=== PATIENT | female | born 1995 | race Caucasian/White ===

== ENCOUNTER 2020-02-29 11:44 | Outpatient (CLI) | payer OTHER, SELFPAY ==
[2020-02-29 12:40] VITALS: BP 135/86; PULSE 68
== END 2020-02-29 12:40 | disposition home or self-care (01) ==
LOC: ANHOBOP 12:24
PROVIDERS: Family Provider Obstetrics & Gynecology; Visit Provider Obstetrics & Gynecology
DX: O41.8X90 Other specified disorders of amniotic fluid and membranes, unspecified trimester, not applicable or unspecified (principal)
CPT/HCPCS: 59025

== ENCOUNTER 2020-03-05 18:50 | Observation (INO) | payer OTHER, SELFPAY ==
--- NOTE | 2020-03-05 18:50 | OBADM ---
This patient, Beulah Mcclain, admitted to the OB room Labor/Delivery/Recovery 103 for observation. Patient/family oriented to hospital policies and general routines including ID bracelet, bed and alarms, visiting hours, pain management, procedures, bathroom and other care routines, personal items, smoking policy, room service/diet, and visiting hours. Patient/Family are encouraged to report perceived risks to care and to ask questions if they do not understand what they are told or what they should do.
[2020-03-05 18:58] VITALS: TEMP 36.4
[2020-03-05 18:59] VITALS: BP 129/88; PULSE 65
[2020-03-05 19:05] VITALS: BMI 22.3
--- NOTE | 2020-03-05 20:06 | PC.NURSE ---
Dr. Luna returned page. Dr. Luna updated on unchanged SVE after 1 hour of monitoring. Contractions occasional and mild. Abdomen soft between. FHT reactive category 1. VSS. Discharge orders received.
[2020-03-05 20:08] VITALS: BP 129/88; PULSE 65
--- NOTE | 2020-03-07 17:09 | PM.OBTRLD ---
OB - Triage/Final Diagnosis Visit Information Reason for evaluation: threatened labor
== END 2020-03-05 20:30 | disposition home or self-care (01) ==
PROVIDERS: Admitting Provider Obstetrics & Gynecology; Visit Provider Obstetrics & Gynecology
DX: O47.1 False labor at or after 37 completed weeks of gestation (principal); Z3A.39 39 weeks gestation of pregnancy
CPT/HCPCS: 59025; G0378; G0379

== ENCOUNTER 2020-03-08 04:57 | Inpatient (IN) | payer OTHER, SELFPAY ==
--- NOTE | 2020-03-06 06:38 | PM.OBTRLD ---
OB - Triage/Final Diagnosis Visit Information Date of evaluation: 03/05/20 Reason for evaluation: threatened labor
[2020-03-08] VITALS (112 sets, daily range): BP systolic 110–171; BP diastolic 38–114; PULSE 29–119; RESP 16–18; TEMP 36.6–37.5; O2SAT 98–100; BMI 21.9
--- NOTE | 2020-03-08 05:37 | LDADM ---
This patient, Beulah Mcclain, was admitted to Labor/Delivery/Recovery 104 on 03/08/20 at 04:57. Plans for labor, pain management and were discussed with patient. Patient/family oriented to hospital policies and general routines including ID bracelet, bed and alarms, visiting hours, pain management, procedures, bathroom and other care routines, personal items, smoking policy, room service/diet and guest tray routines, security routines, and visiting hours. Patient/Family are encouraged to report perceived risks to care and to ask questions if they do not understand what they are told or what they should do. See OBIX for further documentation.
[2020-03-08] MEDS: OXYTOCIN 30 UNITS/NS 500 ML 30 UNITS/500 ML BAG IV CONT (05:50)
[2020-03-08] MEDS: LACTATED RINGERS 1,000 ML 125 ML IV CONT ×3 (05:52→11:42)
[2020-03-08 05:55] LABS: Basophils Percent Auto 0.4 % (0.2-1.2); Eosinophils Absolute Auto 0.1 K/mm3 (0-0.3); Eosinophils Percent Auto 0.8 % (0-4.4); Hemoglobin 11.3 g/dL (12.0-15.0); Immature Granulocyte Absolute 0.04 K/mm3 (0.00-0.031); Immature Granulocyte Percent A 0.5 % (0-0.5); Lymphocytes Absolute Auto 3.14 K/mm3 (0.9-3.2); Lymphocytes Percent Auto 41.9 % (18.3-44.2); Mean Corpuscular HGB Conc 34.2 g/dl (32-36); Mean Corpuscular Hemoglobin 28.7 pg (26-34); Mean Corpuscular Volume 83.8 fl (80-100); Mean Platelet Volume 10.7 fl (7.4-10.4); Monocytes Absolute Auto 0.8 K/mm3 (0.1-0.6); Monocytes Percent Auto 10.5 % (2.6-8.5); Neutrophils Absolute Auto 3.4 K/mm3 (1.3-6.7); Neutrophils Percent Auto 45.9 % (45.5-73.1); Platelet Count Result 196 k/mm3 (150-375); Red Blood Count 3.94 M/mm3 (4.2-5.4); Red Cell Distribution Width 14.1 % (11.5-14.5); White Blood Count 7.5 K/mm3 (4.5-10.0)
--- NOTE | 2020-03-08 06:31 | PM.IMHP ---
H&P: HPI History of Present Illness Chief complaint: Induction Narrative: Beulah Mcclain is a 24 year old female whose last menstrual period was 05/31/2019, EDC is 03/06/2020, presents at 40 half weeks gestation for induction of labor. She is negative for group B strep. She has a favorable cervix. She has a an early ultrasound which confirms dates Review of Systems Review of Systems: All systems reviewed & are unremarkable except as noted in HPI and below PMFSH Family History Family History Father Hypertension Mother Hypertension Grandparent Carcinoma of colon Malignant neoplasm of prostate Social History Social History Smoking status: Never smoker Alcohol intake: never Substance use: never Spiritual care concerns: No Meds Home Medications and Allergies Home Medications Medication Instructions Recorded Confirmed Type PNV cmb#95-ferrous fumarate-FA 1 tablet PO DAILY 02/09/20 02/09/20 History [] Allergies Allergy/AdvReac Type Severity Reaction Status Date / Time doxycycline Allergy Severe Difficulty Verified 03/08/20 05:49 Breathing Vital Signs Vital Signs - 24 hr 03/08/20 05:00 03/08/20 05:52 03/08/20 05:56 Temperature 97.9 F Pulse Rate 64 65 Blood Pressure 139/94 H 137/92 H 03/08/20 06:01 03/08/20 06:16 03/08/20 06:31 Temperature Pulse Rate 76 66 61 Blood Pressure 128/86 139/88 142/92 H Exam Const: General: no acute distress Eyes: General: appearance normal, both eyes and all related structures Neck: Neck: supple and no JVD Thyroid: thyroid normal Resp: Effort & Inspection: normal respiratory effort Auscultation: clear to auscultation bilaterally Cardio: Rate: regular rate Rhythm: regular rhythm GI: Inspection: normal to inspection ( fundus soft consistent with dates) : General: Yes other ( cervix 3/60/2. AROM clear. FHTs reassuring) Skin: General skin exam: no rashes or lesions noted Extrem: General: normal to inspection and no edema Psych: Mental Status: mental status grossly normal Affect: normal affect H&P: Results Labs Labs: Short CBC 03/08/20 Range/Units 05:39 WBC 7.5 (4.5-10.0) K/mm3 Hgb 11.3 L (12.0-15.0) g/dL Hct 33.0 L (37.0-47.0) % Plt Count 196 (150-375) k/mm3 Assessment and Plan Additional Plan impression: Term Plan: Medical induction of labor / she is an epidural candidate / spontaneous vaginal delivery is expected
[2020-03-08 07:00] LABS: Rapid Plasma Reagin Non-Reactive (NonReactive)
--- NOTE | 2020-03-08 07:41 | P.PNAN_ITS ---
Anes - Eval Pre Procedure Procedure: Labor Epidural Date/Time: 03/08/20 07:41 Surgeon: Cheryl Preop Diagnosis: Labor Pain Pre Op Diagnosis: Induction Patient Data Age: 24 Gender: F Height: 5 ft 4 in Weight: 58 kg Last Vital Signs Temp 36.6 C 03/08/20 05:00 Pulse 73 03/08/20 07:39 BP 131/96 H 03/08/20 07:39 Pulse Ox 100 03/08/20 07:39 Allergies Allergy/AdvReac Type Severity Reaction Status Date / Time doxycycline Allergy Severe Difficulty Verified 03/08/20 05:49 Breathing Home Medications Medication Instructions Recorded Confirmed Type PNV cmb#95-ferrous fumarate-FA 1 tablet PO DAILY 02/09/20 02/09/20 History [] Laboratory Tests 03/08/20 03/08/20 03/08/20 05:39 05:39 05:39 WBC 7.5 K/mm3 K/mm3 (4.5-10.0) RBC 3.94 M/mm3 L M/mm3 (4.2-5.4) Hgb 11.3 g/dL L g/dL (12.0-15.0) Hct 33.0 % L % (37.0-47.0) MCV 83.8 fl fl (80-100) MCH 28.7 pg pg (26-34) MCHC 34.2 g/dl g/dl (32-36) RDW 14.1 % % (11.5-14.5) Plt Count 196 k/mm3 k/mm3 (150-375) MPV 10.7 fl H fl (7.4-10.4) Immature Gran % (Auto) 0.5 % % (0-0.5) Neut % (Auto) 45.9 % % (45.5-73.1) Lymph % (Auto) 41.9 % % (18.3-44.2) [place] % (Auto) 10.5 % H % (2.6-8.5) Eos % (Auto) 0.8 % % (0-4.4) Baso % (Auto) 0.4 % % (0.2-1.2) Lymph # (Auto) 3.14 K/mm3 K/mm3 (0.9-3.2) [place] # (Auto) 0.8 K/mm3 H K/mm3 (0.1-0.6) Eos # (Auto) 0.1 K/mm3 K/mm3 (0-0.3) Baso # (Auto) 0.0 K/mm3 K/mm3 (0.0-0.1) Abs Immat Gran (auto) 0.04 K/mm3 H K/mm3 (0.00-0.031) Absolute Neuts (auto) 3.4 K/mm3 K/mm3 (1.3-6.7) Absolute Nucleated RBC 0.0 K/mm3 K/mm3 (0.0-0.012) Nucleated RBC % 0.0 % % (0.0-0.2) RPR Non-reactive (NonReactive) Blood Type O Positive Antibody Screen Negative : gestational age (RICH 03/06/20) Patient hx anesthesia problems: none Family hx anesthesia problems: none [facility] Family History Family History Father Hypertension Mother Hypertension Grandparent Carcinoma of colon Malignant neoplasm of prostate Social History Social History Smoking status: Never smoker Alcohol intake: never Substance use: never Spiritual care concerns: No Exam Day of Procedure 03/08/20 07:41 Patient weight: normal Heart: regular rate and rhythm Lungs: normal air movement Airway: Mallampati scale class II Neurological: alert and oriented
[2020-03-08] MEDS: ONDANSETRON INJ 4 MG/2 ML VIAL IV PUSH (08:09)
--- NOTE | 2020-03-08 11:21 | PM.OBPNVD ---
OB - PN: Subj Subjective Date/time seen: 03/08/20 11:21 Interval history: Cervix is 5.5cm by RN exam. heart tones are reassuring with uterine contractions every 2 minutes Epidural is working and patient is comfortable OB - PN: Obj Data Labs CBC & Chem 7: 03/08/20 05:39 Labs: Laboratory Results - last 24 hr 03/08/20 03/08/20 03/08/20 05:39 05:39 05:39 WBC 7.5 RBC 3.94 L Hgb 11.3 L Hct 33.0 L MCV 83.8 MCH 28.7 MCHC 34.2 RDW 14.1 Plt Count 196 MPV 10.7 H Immature Gran % (Auto) 0.5 Neut % (Auto) 45.9 Lymph % (Auto) 41.9 [place] % (Auto) 10.5 H Eos % (Auto) 0.8 Baso % (Auto) 0.4 Lymph # (Auto) 3.14 [place] # (Auto) 0.8 H Eos # (Auto) 0.1 Baso # (Auto) 0.0 Abs Immat Gran (auto) 0.04 H Absolute Neuts (auto) 3.4 Absolute Nucleated RBC 0.0 Nucleated RBC % 0.0 RPR Non-reactive Blood Type O Positive Antibody Screen Negative OB - PN A/P Time Spent With Patient Time: Total time spent is greater than 50% in coordination of care (as documented) at patient's floor/unit and/or counseling patient:
--- NOTE | 2020-03-08 13:00 | P.PCNOB_ITS ---
OB - Delivery Note Procedure Delivery date: 03/08/20 Intrapartal events: None Induction method: AROM Delivery augmentation: pitocin Delivery monitor: external FHT Route of delivery: Episiotomy description: None Laceration description: None Specimen: No Estimated blood loss (mL): 157 Anesthesia type: Epidural Disposition: floor [place] Baby Date of : 03/08/20 Time of : 12:52 Weeks of gestation at delivery: 40 gender: Male presentation: vertex position: Right Occiput Anterior Placenta delivery description: Spontaneous cord vessel description: 3 Vessels and Nuchal Cord score one minute: 9 score five minutes: 9
[2020-03-08] MEDS: OXYTOCIN 30 UNITS/NS 500 ML 30 UNITS/500 ML BAG 125 UNITS IV CONT (13:26)
[2020-03-08] MEDS: METHYLERGONOVINE MALEATE 0.2 MG/ML VIAL IM (13:26)
--- NOTE | 2020-03-08 15:51 | PC.NURSE ---
PT arrived on unit via wheelchair accompanied by spouse and to room 281. PT oriented to room and surroundings. PT introductions made and plan of care discussed per post , pain management, breast feeding, daily care activities. PT verbalized understanding of such care.Welcome packet reviewed and discussed.
[2020-03-08] MEDS: WITCH HAZEL 40 PADS 1 PAD TOPICAL (16:16)
[2020-03-08] MEDS: DOCUSATE SODIUM 100 MG CAPSULE PO (16:16)
[2020-03-08] MEDS: BENZOCAINE 20% AER SPR (*SP) 56 GM CAN 1 SPRAY TOPICAL (16:16)
[2020-03-08] MEDS: IBUPROFEN 600 MG TABLET PO (16:17)
[2020-03-08] MEDS: ACETAMINOPHEN 325 MG TABLET 650 MG PO (16:17)
[2020-03-09] VITALS (16 sets, daily range): BP systolic 111–143; BP diastolic 68–105; PULSE 52–91; RESP 12–18; TEMP 36.3–37.2; O2SAT 94–100
[2020-03-09 05:34] LABS: Hematocrit 26.2 % (37.0-47.0); Hemoglobin 8.8 g/dL (12.0-15.0)
--- NOTE | 2020-03-09 06:19 | PM.OBPNVD ---
OB - PN: Subj Subjective Date/time seen: 03/09/20 06:19 Patient comments: no complaints and pain well controlled baby status: doing well OB - PN: Obj Data Labs CBC & Chem 7: 03/09/20 05:18 Labs: Laboratory Results - last 24 hr 03/08/20 03/08/20 03/09/20 05:39 05:39 05:18 Hgb 8.8 L Hct 26.2 L RPR Non-reactive Blood Type O Positive Antibody Screen Negative OB - PN A/P Plan day: 1 Plan: routine care Comments: desires ppbtl. permanence,risks/benefits and alternatives reviewed Time Spent With Patient Time: Total time spent is greater than 50% in coordination of care (as documented) at patient's floor/unit and/or counseling patient: Time with patient: less than 15 minutes Review of Systems Review of Systems: All systems reviewed & are unremarkable except as noted in HPI and below Exam Const: General: no acute distress Eyes: General: appearance normal, both eyes and all related structures Neck: Neck: supple and no JVD Thyroid: thyroid normal Resp: Effort & Inspection: normal respiratory effort Auscultation: clear to auscultation bilaterally Cardio: Rate: regular rate Rhythm: regular rhythm GI: Inspection: normal to inspection (fundus firm) : General: Yes bladder normal to palpation External Female Exam: normal external appearance Speculum Exam - Vagina: normal vaginal discharge and No vaginal bleeding Speculum Exam - Cervix: nontender Bimanual exam- vagina & uterus: bladder normal to palpation and No Cervical tenderness present OB/external & speculum: No vaginal bleeding Skin: General skin exam: no rashes or lesions noted Extrem: General: normal to inspection and no edema Psych: Mental Status: mental status grossly normal Affect: normal affect
--- NOTE | 2020-03-09 07:00 | PC.NURSE ---
PT introductions made and plan of care discussed per post , pain management, breast feeding, daily care activities, NPO and pending BTL. PT verbalized understanding of such care.
[2020-03-09] MEDS: LACTATED RINGERS 1,000 ML 125 ML IV CONT (09:09)
[2020-03-09] MEDS: DOCUSATE SODIUM 100 MG CAPSULE PO (09:10)
[2020-03-09] MEDS: ACETAMINOPHEN 325 MG TABLET 650 MG PO (09:10)
[2020-03-09] MEDS: MULTIVIT/MIN/PREN/FOL AC/IRON TABLET 1 TAB PO (09:11)
[2020-03-09] MEDS: IBUPROFEN 600 MG TABLET PO ×2 (09:11→16:24)
[2020-03-09] MEDS: POLYSACCHARIDE IRON COMPLEX 150 MG CAPSULE PO ×2 (09:11→16:26)
--- NOTE | 2020-03-09 10:04 | WPDANESEFPP ---
Anes - Eval Final PreProcedure Day of Procedure 03/09/20 10:04 Patient weight: normal Heart: regular rate and rhythm Lungs: clear to auscultation Airway: Mallampati scale class II Neurological: alert and oriented Last oral intake: >/= 8 hours ASA classification: II Emergent: no Anesthetic plan: proceed Anesthesia type and monitoring: regional epidural and standard monitoring Informed Consent: The patient's anesthetic plan and its attendant risks and benefits were discussed with the patient/family/POA. Questions were solicited and answers provided to the satisfaction of the patient/family/POA.
--- NOTE | 2020-03-09 11:18 | P.OP_ITS ---
Procedure Note - Detailed Date of procedure: 03/09/20 Pre-op diagnosis: Induction Surgeon: Corbin Umaña MD Postop diagnosis: Desires sterilization Procedure: bilateral tubal ligation via modified Trevin method Anesthesia: Epidural Blood loss,: 5cc Complications: None Findings: uterus/normal-appearing ovaries and tubes Description of procedure: The patient was prepped and draped in normal sterile fashion placed in the dorsal lithotomy position. Under excellent epidural anes thesia the abdomen was entered in an infraumbilical incision passed through the rent layers to the fascia fascia was incised upward outward fashion bilaterally underlying muscles sharply dissected parietal peritoneum entered by Brittani clamps and entered by sharp dissection 9 the left fallopian tube was grasped and traversed from its midportion to the fimbriated end reach 1st to the midportion a good knuckle of tube was free tied with 0 chromic perineum between pierced and the distal and proximal legs were free tied with 0 chromic the portion between cut passed off as portion of left fallopian tube hemostasis was assured the right fallopian tube was then grasped traversed to its fimbriated end to assure this was a 2 breech 1st to the midportion a good knuckle of tube formed with and free tied with 0 chromic peritoneum between was cut and the distal and proximal portions free tied with 0 chromic portion between cut passed off the table and marked as portion of right fallopian tube in a states was assured blood loss was estimated at5cc at that point and the tubes were returned to the abdomen. The fascia was closed with continuous running 0 Vicryl from lateral edge to lateral edge and the skin closed with 4 Monocryl glue blood loss was estimated at5cc all sponge, needle, instrument counts were correct. There were no immediate complications
--- NOTE | 2020-03-09 11:23 | PC.NURSE ---
PT to OR via bed accompanied by two nurses from preop. Iv running, pt alert and awake and states comfortable.
--- NOTE | 2020-03-09 12:35 | WPDANLDPN2 ---
Anes-Prog Note L&D Date/Time: 03/09/20 12:35 Comfortable throughout: labor and delivery Neuraxial method: epidural Epidural/Spinal procedure site: clean & non-tender Neuro status: Neuro function grossly intact. Cardiovascular status: normal Respiratory status: normal Airway patency: baseline Mental status: baseline Post-Op hydration status: normal Vital Signs: Last Vital Signs Temp 36.3 C L 03/09/20 11:16 Pulse 61 03/09/20 12:15 Resp 14 03/09/20 12:15 BP 143/99 H 03/09/20 12:15 Pulse Ox 96 03/09/20 12:15 I/O: Intake & Output 03/08/20 03/09/20 03/09/20 23:59 07:59 15:59 Intake Total 0 Balance 0 Post-procedural complaints: none Patient feedback: Patient satisfied with anesthetic care.
--- NOTE | 2020-03-09 12:49 | SUR.PHASEI ---
1248: Dr. Encinas notified about BP. He said continue to monitor.
--- NOTE | 2020-03-09 13:00 | PC.NURSE ---
PT arrived on unit via bed awake and alert and oriented to room and surroundings.
[2020-03-09] MEDS: SIMETHICONE 80 MG TAB.CHEW PO (16:24)
[2020-03-09] MEDS: DOCUSATE SODIUM 100 MG CAPSULE (16:25)
--- NOTE | 2020-03-09 16:30 | PC.NURSE ---
Mother is able to independently latch infant with appropriate positioning/alignment. She denies any nipple discomfort, is feeding as required and waking to feed if needed. has had at least 6 since , and is currently meeting outcomes for weight, output, jaundice and feeding frequencies. Mother states she feels confident to continue effective at home. Reviewed transition to breast milk, signs of adequate intake, and engorgement/relief. Instructed to call ICP if intake/output less than required. Reviewed regular medications mother is taking. Information provided per Alyssa. Reviewed community resources on the [facility] website and in the Mom/Baby guide. Information on outpatient services provided. Mother has no further questions at this time.
--- NOTE | 2020-03-09 18:30 | PC.NURSE ---
PT received discharge instructions per protocol and verbalized understanding of such care.
--- NOTE | 2020-03-09 18:50 | PC.NURSE ---
PT discharged to home ambulatory accompanied by fob and infant to waiting car. Follow up appts confirmed
--- NOTE | 2020-03-10 10:06 | PM.DS ---
DS: Diagnosis Admitting Diagnosis Admitting Diagnosis: term DS: Summary Time Spent with Patient Time attestation: Total time spent providing and/or coordinating discharge services: Exam Const: General: no acute distress Eyes: General: appearance normal, both eyes and all related structures Neck: Neck: supple and no JVD Thyroid: thyroid normal Resp: Effort & Inspection: normal respiratory effort Auscultation: clear to auscultation bilaterally Cardio: Rate: regular rate Rhythm: regular rhythm GI: Inspection: non-distended GI Palp: Yes Soft to palpation, No Tenderness to palpation present (GI) and No Guarding due to palpation present (GI) Auscultation: normal bowel sounds : General: Yes bladder normal to palpation External Female Exam: normal external appearance Speculum Exam - Vagina: normal vaginal discharge and No vaginal bleeding Speculum Exam - Cervix: nontender Bimanual exam- vagina & uterus: bladder normal to palpation and No Cervical tenderness present OB/external & speculum: No vaginal bleeding Skin: General skin exam: no rashes or lesions noted Extrem: General: normal to inspection and no edema Psych: Mental Status: mental status grossly normal Affect: normal affect DS: Data Data Completed and Pending Pending studies at discharge: Pending at discharge 03/09/20 10:54 Surgical [PTH] Routine Discharge Plan Discharge Consulting providers: Efren Rodriguez Jr. Discharging Clinician: Corbin Umaña Patient Disposition: Home, Self-Care Activity: may shower, may drive after 2 weeks, as tolerated and pelvic rest Diet: regular Discharge Instructions: Education: Mom and Baby Guide Given to: Mother Follow-Up: Call your delivering provider's office for an appointment to be seen in: 1 Week Mom and baby should come to the [facility] for the follow-up appointment. Appointment Date/Time: March 10, 2020 at 11:00 am What to expect at your follow-up visit: Blood Pressure Check Call [phone] if you are unable to keep your appointment time. BREAST CARE: 1. Wear a snug supportive bra. 2. For engorgement discomfort: Breast Feeding: A. Apply warm moist washcloths B. Express milk as needed to relieve engorgement C. Wear loose clothing Bottle Feeding: A. May apply ice packs 3. For sore nipples: A. Identify correct latch-on B. Apply warm moist washcloths before and after nursing C. Air dry nipples after nursing D. May apply Lansinoh cream to nipples ABDOMINAL INCISION: (if applicable) 1. Allow incision to air dry 2. Do NOT use lotions for powders on your incision 3. When showering, allow soap and water to run over the incision, but do not wash incision PERINEAL CARE: 1. Until bleeding stops, use your jarrett bottle after urinating 2. Change your pad frequently throughout the day 3. You may take sitz baths several times a day (fill your bathtub with warm water and soak for 20 minutes.) Do NOT bathe in the water 4. No tub baths until seen by your physician - You may shower ACTIVITY: 1. Rest as much as possible. 2. Do not exercise or lift anything heavier than your baby (such as laundry or other children.) 3. Avoid stairs or driving as much as possible. 4. Do not put anything into the vagina. No douching, tampons, or sexual activity until seen by physician. NOTIFY PHYSICIAN IF YOU HAVE ANY QUESTIONS OR IF ANY OF THE FOLLOWING SYMPTOMS OCCUR: 1. If your perineum incision becomes red, swollen, or more painful than what you have experienced in the hospital. 2. If your vaginal bleeding becomes foul smelling. 3. If your vaginal bleeding becomes more heavy than a period or if your bleeding changes from pink to bright red. However, you may pass an occasional walnut-sized clot once or twice for the first week . 4. If you experience a sharp, shooting pain in y
[2020-03-10 11:46] VITALS: BP 130/92; PULSE 69; TEMP 36.9
== END 2020-03-09 18:50 | disposition home or self-care (01) | DRG 541 ==
LOC: ANHLDR 13:11 → ANHOB2 16:06
PROVIDERS: Admitting Provider Obstetrics & Gynecology; Visit Provider Obstetrics & Gynecology
PROC: 0UL70ZZ Occlusion of Bilateral Fallopian Tubes, Open Approach (ICD-10-PCS; CPT 58605; principal; 2020-03-09 11:00)
DX: O69.81X0 Labor and delivery complicated by cord around neck, without compression, not applicable or unspecified (principal); Z37.0 Single live birth; Z3A.40 40 weeks gestation of pregnancy; Z30.2 Encounter for sterilization
CPT/HCPCS: 36415; 85014; 85018; 85025; 86592; 86850; 86900; 86901; 88302; A9270; J2210; J2405; J2590; J2795; J3010; J7120

== ENCOUNTER 2025-02-22 08:30 | Outpatient (CLI) | payer BC, SELFPAY ==
--- OUTSIDE RECORDS SUMMARY | 2025-02-22 08:51 | XMS_ITS | Clinical Summary ---
Author Organization [facility] Address [address] [place] [address] Care Team Providers Care Instructor Apparel Manufacture Name Role Phone Darrell Lopez MD Primary Care Provider [phone] Darrell Lopez MD Unavailable [phone] Source Comments [facility],non-owned Affiliates and Associated Physician Practices is amultiple site organization consisting of ambulatory clinics and hospital sitesin [place], [place], [place] and [place]. This disclosure is being madepursuant to the Care Everywhere program and may not contain all information available regarding this patient. Last updated 18.[facility] Allergies Active Allergy Reactions Criticality Noted Date Comments Doxycycline 01/19/2016 Doxycycline Anaphylaxis High 04/12/2017 Throat swelling Medications * Be aware that medications may not be up to date on this document. Alwaysverify current medications with the patient. propranolol (INDERAL) 60 MG tablet Take 60 mg by mouth at bedtime Active amitriptyline (ELAVIL) 10 MG tablet Take 10 mg by mouth at bedtime 2 tabs Active ibuprofen (MOTRIN) 600 MG tablet Take 1 Tab by mouth every 6 hours as needed for Pain 40 Tab 0 01/29/2016 Active oxyCODONE-aceta minophen (PERCOCET) 5-325 MG tablet Take 1 Tab by mouth every 6 hours as needed for Pain 40 Tab 0 01/29/2016 Active Jztsisjw-Uie-Id -FA ( VITAMINS PO) Active OtherIndication s: control mini pill Reasons: control mini pill Active fluticasone propionate (FLONASE) 50 MCG/ACT nasal sprayIndication s:Bilateral acute serous otitis media, recurrence not specified,Dysfu nction of right eustachian tube [place] 2 sprays into each nostril once daily 1 bottles 05/10/2018 Active Active Problems Problem Noted Date Diagnosed Date Chronic pelvic pain in female 01/29/2016 Dysmenorrhea 01/29/2016 Social History Tobacco Use Types Packs/Day Years Used Date Smoking Tobacco: Never Smokeless Tobacco: Never Alcohol Use Standard Drinks/Week Comments No 0 (1 standard drink = 0.6 oz pur e alcohol) Comments No Sex and Gender Information Value Date Recorded Sex Assigned at Not on file 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 Gender Identity Not on file Sexual Orientation Not on file Last Filed Vital Signs Vital Sign Reading Time Taken Comments Blood Pressure 98/68 05/10/2018 10:50 AM CDT Pulse 79 05/10/2018 10:50 AM CDT Temperature 36.7 C (98.1 F) 05/10/2018 10:50 AM CDT Respiratory Rate 16 05/10/2018 10:50 AM CDT Oxygen Saturation 98% 05/10/2018 10:50 AM CDT Inhaled Oxygen Concentration - - Weight 44.5 kg (98 lb) 05/10/2018 10:50 AM CDT Height 162.6 cm (5' 4 ) 05/10/2018 10:50 AM CDT Body Mass Index 16.82 05/10/2018 10:50 AM CDT Plan of Treatment Health Maintenance Due Date Last Done Comments HIV SCREENING 2010 HEPATITIS C SCREENING 05/06/2013 DTAP/TDAP/TD VACCINES (1 - Tdap) 2014 HEPATITIS B VACCINE (1 of 3 - 19+ 3-dose series) 2014 COVID-19 VACCINE (1 - 2023-2 5 season) 2024 DEPRESSION SCREENING 10/27/2024 INFLUENZA VACCINE (Season Ended) 2025 08/29/20 21 ZOSTER VACCINE (1 of 2) 2045 HIB VACCINE Aged Out No longer eligi ble based on patient's age to complete this topic HPV VACCINE Aged Out No longer eligi ble based on patient's age to complete this topic MENINGOCOCCAL (Group B) VACC INE SHARED DECISION-MAKING Aged Out No longer eligibl e based on patient's age to complete this topic MENINGOCOCCAL GROUPS A/C/Y/W VACCINE Aged Out No longer eligible b ased on patient's age to complete this topic PNEUMOCOCCAL VACCINE Aged Out No long er eligible based on patient's age to complete this topic Insurance [facility] AETNA Care Teams Instructor Apparel Manufacture Relationship Specialty Start Date End Date Darrell Lopez MD [address] [place] [address] PCP - General Family Medicine 04/12/17 Darrell Lopez MD [address] [place] [address] Family Medicine 04/12/17
[2025-02-22 09:04] LABS: Basophils Percent Auto 0.6 % (0.2-1.2); Eosinophils Absolute Auto 0.1 K/mm3 (0-0.3); Eosinophils Percent Auto 1.4 % (0-4.4); Hemoglobin 12.4 g/dL (12.0-15.0); Immature Granulocyte Absolute 0.01 K/mm3 (0.00-0.031); Immature Granulocyte Percent A 0.2 % (0-0.5); Lymphocytes Absolute Auto 2.68 K/mm3 (0.9-3.2); Lymphocytes Percent Auto 42.4 % (18.3-44.2); Mean Corpuscular HGB Conc 31.8 g/dl (32-36); Mean Platelet Volume 9.3 fl (7.4-10.4); Monocytes Absolute Auto 0.5 K/mm3 (0.1-0.6); Monocytes Percent Auto 7.3 % (2.6-8.5); Neutrophils Percent Auto 48.1 % (45.5-73.1); Platelet Count Result 309 k/mm3 (150-375); Red Blood Count 4.59 M/mm3 (4.2-5.4); White Blood Count 6.3 K/mm3 (4.5-10.0)
[2025-02-22 09:11] LABS: Alanine Aminotransferase 17 U/L (6-35); Albumin Level 4.4 g/dL (3.5-5.1); Alkaline Phosphatase 67 U/L (38-126); Anion Gap 7 mmol/L (4-12); Aspartate Amino Transferase 21 U/L (14-36); Bilirubin,Total 1.3 mg/dL (0.2-1.3); Blood Urea Nitrogen 8 mg/dL (7-17); Calcium 9.2 mg/dL (8.4-10.2); Carbon Dioxide 28 mmol/L (22-30); Chloride 106 mmol/L (98-107); Cholesterol 198 mg/dL (0-200); Estimated Glomerular Filt Rate > 60; Glucose 91 mg/dL (65-110); HDL Direct 52 mg/dL; Potassium 4.3 mmol/L (3.4-5.0); Sodium 141 mmol/L (137-145); Triglycerides 118 mg/dL (<150)
[2025-02-22 09:28] LABS: LDL Cholesterol Direct 115 mg/dL
== END 2025-02-22 08:31 | disposition home or self-care (01) ==
LOC: ANHLAB 08:31
PROVIDERS: PCP Family Medicine
DX: Z13.0 Encounter for screening for diseases of the blood and blood-forming organs and certain disorders involving the immune mechanism (principal); Z13.1 Encounter for screening for diabetes mellitus; Z13.220 Encounter for screening for lipoid disorders; Z13.29 Encounter for screening for other suspected endocrine disorder
CPT/HCPCS: 36415; 80053; 80061; 84443; 85025

== ENCOUNTER 2025-05-17 10:55 | Outpatient (CLI) | payer BC, SELFPAY ==
--- NOTE | ~2025-05-17 | US_ITS ---
US soft tissue abdomen 05/17/2025 11:10 Indication: Periumbilical pain and drainage Procedure: High-resolution Limited ultrasound of the periumbilical soft tissues Comparison: No prior studies for comparison. Findings: Normal heterogeneous echotexture without focal mass, phlegmonous change or discrete fluid c ollection to suggest abscess. Impression: 1: Normal soft tissue ultrasound of the periumbilical region. No discrete fluid collection. Reviewed, dictated and finalized at location A. Impression: 1: Normal soft tissue ultrasound of the periumbilical region. No discrete fluid collection.
== END 2025-05-17 10:56 | disposition home or self-care (01) ==
LOC: MICIMG 10:56
PROVIDERS: PCP Family Medicine; Visit Provider Nurse Practitioner Adult Health
DX: R10.33 Periumbilical pain (principal); L08.9 Local infection of the skin and subcutaneous tissue, unspecified
CPT/HCPCS: 76705